=== PATIENT | male | born 1995 | race Two or more races ===

== ENCOUNTER 2019-09-30 10:40 | Emergency (ER) | payer SELFPAY ==
[~2019-09-30] VITALS: Ht 172.7 cm; Wt 170.1 kg
[2019-09-30] VITALS (36 sets, daily range): BP systolic 110–143; BP diastolic 48–103
--- NOTE | 2019-09-30 10:45 | NUR ---
ED Nurse Note: Pt was brought in ambulance from home d/t behavioral complaint. Per EMS pt smoked meth yesterday and hear voices. Pt wants to hang himself. Placed on bed and gown; hooked to oil dispatcher. VSS, on RA, afebrile on triage. Safety measures in placed. Will continue to monitor.
[2019-09-30 11:05] LABS: APPEARANCE,URINE CLEAR; BILIRUBIN, URINE NEGATIVE (NEGATIVE); COLOR,URINE PALE YELLOW; EOSINOPHILS % (AUTO) 0.7 % (0.0-3.0); GLUCOSE, URINE (UA) NEGATIVE (NEGATIVE); HEMATOCRIT 43.8 % (42.0-52.0); HEMOGLOBIN 16.2 G/DL (14.2-18.0); KETONES,URINE NEGATIVE (NEGATIVE); LEUKOCYTE ESTERASE ,URINE NEGATIVE (NEGATIVE); LYMPHOCYTES % (AUTO) 21.4 % (20.0-45.0); MEAN CORPUSCULAR VOLUME 91 FL (80-99); MONOCYTES % (AUTO) 6.7 % (1.0-10.0); NEUTROPHILS % (AUTO) 70.3 % (45.0-75.0); NITRITE,URINE NEGATIVE (NEGATIVE); PH,URINE 7 (4.5-8.0); PLATELET COUNT 225 K/UL (150-450); PROTEIN,URINE NEGATIVE (NEGATIVE); RED BLOOD COUNT 4.81 M/UL (4.70-6.10); RED CELL DISTRIBUTION WIDTH 11.7 % (11.6-14.8); UROBILINOGEN,URINE NORMAL MG/DL (0.0-1.0); WHITE BLOOD COUNT 8.3 K/UL (4.8-10.8)
--- NOTE | 2019-09-30 11:21 | NUR ---
ED Nurse Note: Noted pt with mild anxiety; pt stated, "I need to get out of here, I need to call my mom."
--- NOTE | 2019-09-30 11:30 | NUR ---
ED Nurse Note: Dr. Barraza at bedside.
[2019-09-30 11:33] LABS: ANION GAP 11 mmol/L (5-15); BLOOD UREA NITROGEN 9 mg/dL (7-18); CALCIUM 9.4 MG/DL (8.5-10.1); CARBON DIOXIDE 24 MMOL/L (21-32); CHLORIDE 106 MMOL/L (98-107); CREATININE 0.9 MG/DL (0.55-1.30); POTASSIUM 3.9 MMOL/L (3.5-5.1); SODIUM 141 MMOL/L (136-145)
--- NOTE | 2019-09-30 11:35 | Emergency Room Report ---
History of Present Illness General Chief Complaint: Behavioral Complaint Source: Patient, EMS (Francisco Barraza MD) Present Illness HPI Patient is a 24-year-old male brought in by EMS with [employer] after increased agitation at home. Patient reportedly had been in a psychiatric facility in the past. Patient was placed on a 5150 hold by [employer]. Reportedly had threatened to harm himself. Reportedly had been using methamphetamine. Patient denies any suicidal thoughts or thoughts of self-harm and states he was only eating cake. (Francisco Barraza MD) Allergies: Coded Allergies: No Known Allergies (Unverified , 09/30/19) COVID-19 Screening Contact w/high risk pt: No Recent Travel to affected area: No Experienced COVID-19 symptoms?: No (Francisco Barraza MD) Patient History Past Medical History: see triage record Reviewed Nursing Documentation: PMH: Agreed; PSxH: Agreed (Francisco Barraza MD) Nursing Documentation-PMH Past Medical History: No Stated History (Francisco Barraza MD) Review of Systems All Other Systems: negative except mentioned in HPI (Francisco Barraza MD) Physical Exam Vital Signs Date Time Temp Pulse Resp B/P (MAP) Pulse Ox O2 Delivery O2 Flow Rate FiO2 09/30/19 10:35 99.1 103 18 124/84 (97) 98 Room Air Sp02 EP Interpretation: reviewed, normal General Appearance: normal inspection, alert, obese Head: atraumatic ENT: normal ENT inspection, hearing grossly normal, normal voice Neck: normal inspection, full range of motion, supple, no bony tend Respiratory: normal inspection, lungs clear, normal breath sounds, no respiratory distress, no retraction, no wheezing Cardiovascular #1: regular rate, rhythm, no edema Gastrointestinal: normal inspection, normal bowel sounds, non tender, soft, no guarding, no hernia Genitourinary: no CVA tenderness Musculoskeletal: normal inspection, back normal, normal range of motion Neurologic: alert, motor strength/tone normal, enrollment management manager III-XII nml as tested, sensory intact, responsive, speech normal, normal inspection Psychiatric: mood/affect normal, anxious (Francisco Barraza MD) Medical Decision Making Diagnostic Impression: Primary Impression: Behavioral disorder Additional Impression: Psychosis ER Course Patient presented for agitation. Differential diagnoses include substance abuse , psychosis, bipolar disorder, depression, malingering . because of complexity of patient's case laboratory tests and imaging studies were ordered Patient was noted to have increased agitation and was given Benadryl held Ativan and Haldol. He was placed in restraints. Patient was noted to be 5150 hold placed by [employer]. Patient was medically cleared for psychiatric evaluation as needed. Currently denies suicidal thoughts. Labs Test 09/30/19 10:45 White Blood Count 8.3 K/UL (4.8-10.8) Red Blood Count 4.81 M/UL (4.70-6.10) Hemoglobin 16.2 G/DL (14.2-18.0) Hematocrit 43.8 % (42.0-52.0) Mean Corpuscular Volume 91 FL (80-99) Mean Corpuscular Hemoglobin 33.6 PG (27.0-31.0) Mean Corpuscular Hemoglobin Concent 36.9 G/DL (32.0-36.0) Red Cell Distribution Width 11.7 % (11.6-14.8) Platelet Count 225 K/UL (150-450) Mean Platelet Volume 7.6 FL (6.5-10.1) Neutrophils (%) (Auto) 70.3 % (45.0-75.0) Lymphocytes (%) (Auto) 21.4 % (20.0-45.0) Monocytes (%) (Auto) 6.7 % (1.0-10.0) Eosinophils (%) (Auto) 0.7 % (0.0-3.0) Basophils (%) (Auto) 1.0 % (0.0-2.0) Urine Color Pale yellow Urine Appearance Clear Urine pH 7 (4.5-8.0) Urine Specific [place] 1.005 (1.005-1.035) Urine Protein Negative (NEGATIVE) Urine Glucose (UA) Negative (NEGATIVE) Urine Ketones Negative (NEGATIVE) Urine Blood Negative (NEGATIVE) Urine Nitrite Negative (NEGATIVE) Urine Bilirubin Negative (NEGATIVE) Urine Urobilinogen Normal MG/DL (0.0-1.0) Urine Leukocyte Esterase Negative (NEGATIVE) Sodium Level 141 MMOL/L (136-145) Potassium Level 3.9 MMOL/L (3.5-5.1) Chloride Level 106 MMOL/L (98-107) Carbon Dioxide Level 24 MMOL/L (21-32) Anion Gap 11 mmol/L (5-15) Blood Urea Nitrogen 9 mg/dL (7-18) Creatinine 0.9 MG/DL (0.55-1.30) Estimat Glomerular Filtration Rate > 60 mL/min (>60) Glucose Level 104 MG/DL (74-106) Calcium Level 9.4 MG/DL (8.5-10.1) Total Bilirubin 0.4 MG/DL (0.2-1.0) Aspartate Amino Transf (AST/SGOT) 42 U/L (15-37) Alanine Aminotransferase (ALT/SGPT) 99 U/L (12-78) Alkaline Phosphatase 66 U/L (46-116) Total Protein 8.0 G/DL (6.4-8.2) Albumin 4.1 G/DL (3.4-5.0) Globulin 3.9 g/dL Albumin/Globulin Ratio 1.1 (1.0-2.7) Salicylates Level 0.5 ug/mL (2.8-20) Urine Opiates Screen Negative (NEGATIVE) Acetaminophen Level < 2 MCG/ML (10-30) Urine Barbiturates Screen Negative (NEGATIVE) Phencyclidine (PCP) Screen Negative (NEGATIVE) Urine Amphetamines Screen Negative (NEGATIVE) Urine Benzodiazepines Screen Negative (NEGATIVE) Urine Cocaine Screen Negative (NEGATIVE) Urine Marijuana (THC) Screen Positive (NEGATIVE) Serum Alcohol < 3 mg/dL (Francisco Barraza MD) ER Course I reevaluated patient in the morning. On 5150 hold. Patient not endorsing SI or HI. I do not believe patient requires emergent psychiatric placement. We will call Dr. Kinsey to clear patient. (Russell Bryson MD) ER Course Patient signed out to me from previous provider pending psychiatric evaluation. Briefly, the patient is on a 5150 hold for suicidal thoughts. He has been in the emergency department for nearly 30 hours. Denies SI/HI at this time. Dr. Kinsey has evaluated the patient and lifted the 5150 hold. Patient will be discharged to follow-up with his mental health team. No complaints or health concerns from the patient at this time. (Jake Joe MD) Last Vital Signs Date Time Temp Pulse Resp B/P (MAP) Pulse Ox O2 Delivery O2 Flow Rate FiO2 09/30/19 11:00 99.1 18 124/84 98 Room Air 09/30/19 11:00 103 (Francisco Barraza MD) Disposition: HOME, SELF-CARE Condition: Stable Referrals: NOT CHOSEN IPA/,REFERRING (PCP) Francisco Barraza MD September 30, 2019 11:35 Russell Bryson MD October 01, 2019 14:13 Jake Joe MD October 01, 2019 16:06
[2019-09-30 11:38] LABS: ALANINE AMINOTRANSFERASE 99 U/L (12-78); ALBUMIN 4.1 G/DL (3.4-5.0); ALBUMIN/GLOBULIN RATIO 1.1 (1.0-2.7); ALKALINE PHOSPHATASE 66 U/L (46-116); ASPARTATE AMINO TRANSFERASE 42 U/L (15-37); BILIRUBIN,TOTAL 0.4 MG/DL (0.2-1.0)
--- NOTE | 2019-09-30 11:48 | NUR ---
ED Nurse Note: Pt was found not on his bed, stated "I want to leave!", called security; notified ERMD and charge nurse; pt uncompliant to care, consistently yelling. Placed back to bed; safety measures in placed. Skin intact; no redness nor swelling on bilateral wrist. Dim lights on pt's room. VSS, on RA, NAD. Will contine to monitor.
[2019-09-30] MEDS ORDERED: Haloperidol 5mg/ml Inj IM ONE (12:00)
[2019-09-30] MEDS ORDERED: LORazepam Inj 2mg/ml 1ml IM ONE (12:00)
[2019-09-30] MEDS ORDERED: DiphenhydrAMINE 50mg/ml Inj IM ONE (12:00)
--- NOTE | 2019-09-30 13:00 | NUR ---
ED Nurse Note: Pt came in with guerrero shirt and shorts but shirt was teared up; clothes remained with pt right now. Black shoes placed on psych locker #3.
--- NOTE | 2019-09-30 14:51 | NUR ---
ED Nurse Note: Pt on bed, asleep. VSS, on RA, NAD noted.
--- NOTE | 2019-09-30 18:30 | NUR ---
ED Nurse Note: assisted pt on eating snacks and drink.
--- NOTE | 2019-09-30 19:00 | NUR ---
ED Nurse Note: sitter at bedside. safety precautions in place. will continue to monitor.
--- NOTE | 2019-09-30 19:05 | NUR ---
ED Nurse Note: Pt assessed and informed of possible restraint removal parameters. Pt agreed. pt able to fully verbalize needs and thought process. Pt pleasant and polite. Pt resting in bed comfortably, compliant with following commands and guidelines. Sitter placed at bedside, restraints removed. will continue to monitor.
--- NOTE | 2019-09-30 19:13 | NUR ---
ED Nurse Note: hand-off given to gillian baugh for continuity of care.
--- NOTE | 2019-09-30 19:15 | NUR ---
ED Nurse Note: Pt resting in bed, VSS no ss of distress noted.
--- NOTE | 2019-09-30 21:30 | NUR ---
ED Nurse Note: Pt informed of ERMD desire to initiate additional 1L of NS and need for new iv access establishment. Pt refused. PT medically cleared. ERMD notified of refusal and clearance.
--- NOTE | 2019-09-30 23:32 | NUR ---
ED Nurse Note: Pt resting in bed. Pt offered food and drinks, pt refused. pt offered assistance to restroom, pt refused. ERMD aware. pt aao x 4, calm and cooperative. will continue to monitor.
[2019-10-01] VITALS (7 sets, daily range): BP systolic 128–134; BP diastolic 53–76
--- NOTE | 2019-10-01 01:15 | NUR ---
ED Nurse Note: Pt offered food and drinks, pt accepted. Pt given sandwich, juice, and water. Pt denied need for restroom. Pt stated he just wants to sleep. Pt resting comfortably in bed. VSS no ss of distress noted.
--- NOTE | 2019-10-01 03:20 | NUR ---
ED Nurse Note: Pt sleeping in bed, vss no ss of distress noted. safety precautions in place, sitter at bedside.
--- NOTE | 2019-10-01 05:22 | NUR ---
ED Nurse Note: Pt sleeping in bed, vss no ss of distress noted. safety precautions in place, sitter at bedside.
--- NOTE | 2019-10-01 05:24 | NUR ---
ED Nurse Note: pt informed of need to place new IV for maintainance IV fluids. Pt refused. ERMD aware.
--- NOTE | 2019-10-01 07:10 | NUR ---
ED Nurse Note: RECEIVED REPORT FROM JONNA PRESSLEY, PT SITTING ON CHAIR WITH SITTER. PT IS WITH NO DISTRESS. CALM AT THIS TIME AND EATING HIS BREAKFAST.
--- NOTE | 2019-10-01 07:42 | NUR ---
ED Nurse Note: PT. FINISHED HIS BREAKFAST TRAY 100%. PT. REQUESTED A 2ND BREAKFAST TRAY. VSS.
--- NOTE | 2019-10-01 07:50 | NUR ---
ED Nurse Note: Second breakfast tray provided to pt. Primary RN as sitter.
--- NOTE | 2019-10-01 08:21 | NUR ---
ED Nurse Note: Pt yelling and screaming and states that he is doing that because he is bored. Dr Bryson at the bed side and explained to pt that we still are waiting for a placement bed. Pt verbalized understanding.
--- NOTE | 2019-10-01 13:30 | NUR ---
ED Nurse Note: pt. kept on going to the nursing station asking for his shoes. Dr. nicholas explained to him that he is not allowed to have his belongings until he was cleared out by Psych doctor. Attempted to ask pt. to return to his room but pt. escaped through the ambulance entrance. case technician attempted to stop him. called senior security architect but pt. was nowehere to be found. Called 911. Spoke with rotary drill operator [phone] and was told that police will be sent to the hospital for investigation
--- NOTE | 2019-10-01 15:20 | NUR ---
ED Nurse Note: pt. returned by officer jessica. pt. was placed in a room. phuong romero at the bedside.
--- NOTE | 2019-10-01 16:10 | NUR ---
ED Nurse Note:dr. Kinsey came to evaluate pt. ,and she had cleared him for d/c home, pt. was given food and his clothes from [facility]
--- NOTE | 2019-10-01 16:20 | NUR ---
ED Nurse Note: pt.'s hold was lifted by Dr. Kinsey. d/c sitetr order
--- NOTE | 2019-10-01 16:25 | NUR ---
ER DISCHARGE NOTE: Patient is cleared to be discharged per ERMD, pt is aox4, on room air, with stable vital signs. pt was given dc instructions, pt was able to verbalize understanding, pt is able to ambulate with steady gait. pt took all belongings.
== END 2019-10-01 16:30 | disposition home or self-care (01) ==
LOC: EDBD 10:40 → EMR 11:09
DX: F91.9 Conduct disorder, unspecified (principal); F23 Brief psychotic disorder; R45.851 Suicidal ideations
CPT/HCPCS: 36415; 80053; 80307; 81003; 85025; 96372; 99285; G0480; J1200; J1630

== ENCOUNTER 2019-11-07 21:20 | Emergency (ER) | payer SELFPAY ==
[~2019-11-07] VITALS: Ht 172.7 cm; Wt 136.1 kg
--- NOTE | 2019-11-07 21:28 | Emergency Room Report ---
History of Present Illness General Chief Complaint: Behavioral Complaint Source: Patient, EMS (Francisco Barraza MD) Source: Patient, EMS, [employer] (Juancarlos Phillips MD) Present Illness HPI Patient is a 24-year-old male who presented for increased agitation. Patient had been previously on a 5150 hold. Patient had been brought in after mom called. Had previous psychiatric hospitalizations due to mental illness. Previous ER visit for 5150 hold in the past. Reportedly had use of substances in the past. (Francisco Barraza MD) HPI This is a 24-year-old male with psychiatric history. He presents with chief complaint of agitation and danger to self and others. His mom called 911 because he was acting erratically. Supposedly there was methamphetamine use. She said that she felt danger to herself and called 911. [address] him on a 5150. Patient said that she did not give him his Abilify. He denies suicidal thoughts homicidal thought. He denies any drug use or alcohol use. (Juancarlos Phillips MD) Allergies: Coded Allergies: No Known Allergies (Unverified , 09/30/19) COVID-19 Screening COVID-19 risk:Contact w/high r: No COVID-19 risk:Travel to affect: No Has patient experienced blair: No COVID-19 Testing performed LIFE CYCLE ASSESSMENT ANALYST: No (Francisco Barraza MD) COVID-19 risk:Contact w/high r: No COVID-19 risk:Travel to affect: No Has patient experienced blair: No (Juancarlos Phillips MD) Patient History Past Medical History: see triage record Reviewed Nursing Documentation: PMH: Agreed; PSxH: Agreed (Francisco Barraza MD) Past Medical History: see triage record, old chart reviewed Past Surgical History: none Family History: none Social History: tobacco use, drug use Immunizations: other Reviewed Nursing Documentation: PMH: Agreed; PSxH: Agreed (Juancarlos Phillips MD) Review of Systems ENT: Denies: sore throat Cardiovascular: Denies: chest pain, palpitations Gastrointestinal/Abdominal: Denies: nausea, vomiting, diarrhea Musculoskeletal: Denies: back problems Skin: Denies: rash Neurological: Denies: TROY, seizures All Other Systems: negative except mentioned in HPI (Juancarlos Phillips MD) Physical Exam Vital Signs Date Time Temp Pulse Resp B/P (MAP) Pulse Ox O2 Delivery O2 Flow Rate FiO2 11/07/19 21:17 98.2 122 18 113/49 (70) 98 Room Air Sp02 EP Interpretation: reviewed, normal General Appearance: alert/responsive, no apparent distress, GCS 15, non-toxic Head: atraumatic Eyes: PERRL, lids + conjunctiva normal ENT: hearing intact, no angioedema Neck: supple/symm/no masses, no meningismus Respiratory: effort normal, no wheezing, chest symmetrical Cardiovascular: regular rate, rhythm, no edema Cardiovascular #2: 2+ carotid (R), 2+ carotid (L), 2+ dorsalis pedis (R), 2+ dorsalis pedis (L) Gastrointestinal: non-tender, no mass, non-distended, no rebound/guarding, normal bowel sounds Musculoskeletal: gait & station normal, normal ROM, strength & tone normal, non -tender Neurologic: oriented x3, sensory intact, normal speech Psychiatric: other Skin: no rash, well hydrated Lymphatic: normal inspection (Francisco Barraza MD) Vitals unremarkable Sp02 EP Interpretation: reviewed, normal General Appearance: alert/responsive, no apparent distress, non-toxic Head: normocephalic, atraumatic Eyes: PERRL, EOMI ENT: oropharynx normal Neck: supple/symm/no masses Respiratory: effort normal, no rhonchi, no wheezing Cardiovascular: no murmur, gallop, rub Gastrointestinal: non-tender, no mass, non-distended, no rebound/guarding, normal bowel sounds Musculoskeletal: gait & station normal Neurologic: oriented x3, sensory intact, motor strength/tone normal Psychiatric: other - Flat affect Skin: no rash, normal palpation (Juancarlos Phillips MD) Medical Decision Making Diagnostic Impression: Primary Impression: Behavioral disorder Additional Impressions: Psychosis Qualified Codes: F23 - Brief psychotic disorder At risk for danger to others ER Course Patient was seen by me briefly and was endorsed to Dr. Phillips. (Francisco Barraza MD) ER Course Patient presents as a 5150 for danger to self and other. He is calm here. I did give him a dose of Zyprexa here. Laboratory data is unremarkable. Alcohol and drug screen negative. Patient is medically cleared for psychiatric evaluation. (Juancarlos Phillips MD) ER Course Please see above note. Patient was agitated. He thought that staff were laughing at him. He is he was reassured and calmed. He states he takes Latuda and Abilify. He had already received Zyprexa 5mg. He is given half dose of his usual Abilify and also 1 mg of Ativan. Patient more calm. Attempting to place. Tested for COVID-19 which is negative. Patient agitated and not calming. Sedated with Haldol, Benadryl and Ativan. Await placement. Signed out to Dr. Joe. (Nathaniel Pan MD) Last Vital Signs Date Time Temp Pulse Resp B/P (MAP) Pulse Ox O2 Delivery O2 Flow Rate FiO2 11/07/19 21:17 98.2 122 18 113/49 (70) 98 Room Air (Francisco Barraza MD) Status: unchanged (Juancarlos Phillips MD) Last Vital Signs Date Time Temp Pulse Resp B/P (MAP) Pulse Ox O2 Delivery O2 Flow Rate FiO2 11/08/19 14:23 98.7 62 17 120/61 99 Room Air Status: improved (Nathaniel Pan MD) Disposition: PSYCH HOSP/UNIT Condition: Stable Francisco Barraza MD Nov 07, 2019 21:28 Juancarlos Phillips MD Nov 07, 2019 23:46 Nathaniel Pan MD Nov 08, 2019 06:46
[2019-11-07 22:00] VITALS: BP 113/49
--- NOTE | 2019-11-07 22:00 | NUR ---
ED Nurse Note: Pt brought into ED by BERTHA from home for behavioral complaint. Pt placed on 5150 psych hold by [employer] for danger to self and others. Per [employer], pt stated he was hearing voices and the mother had disclosed to PD that she was scared for her own safety and the pts. Pt denies wanting to harm others or himself upon ED assessment by RN. Pt also denies drug or alcohol use tonight. Pt is aaox4, breathing is normal and unlabored. No cough, SOB or fever noted. Pt placed in room with suicide and safety precuations in place and put into gown. Pt displays attention seeking behaviors such as using a loud voice, but is otherwise cooperative. Blood drawn and sent to lab. RN bedside as sitter. Will continue to closely monitor.
--- NOTE | 2019-11-07 22:10 | NUR ---
ED Nurse Note: Pt belongings locked in locker 3.
[2019-11-07 22:39] LABS: BASOPHILS % (AUTO) 0.9 % (0.0-2.0); EOSINOPHILS % (AUTO) 0.5 % (0.0-3.0); HEMATOCRIT 48.7 % (42.0-52.0); HEMOGLOBIN 15.5 G/DL (14.2-18.0); LYMPHOCYTES % (AUTO) 24.3 % (20.0-45.0); MEAN CORPUSCULAR VOLUME 104 FL (80-99); MONOCYTES % (AUTO) 5.2 % (1.0-10.0); NEUTROPHILS % (AUTO) 69.1 % (45.0-75.0); PLATELET COUNT 261 K/UL (150-450); RED CELL DISTRIBUTION WIDTH 13.9 % (11.6-14.8); WHITE BLOOD COUNT 9.1 K/UL (4.8-10.8)
[2019-11-07 22:46] LABS: APPEARANCE,URINE CLEAR; BILIRUBIN, URINE NEGATIVE (NEGATIVE); GLUCOSE, URINE (UA) NEGATIVE (NEGATIVE); KETONES,URINE 1+ (NEGATIVE); LEUKOCYTE ESTERASE ,URINE 1+ (NEGATIVE); NITRITE,URINE NEGATIVE (NEGATIVE); PH,URINE 6 (4.5-8.0); PROTEIN,URINE 2+ (NEGATIVE); UROBILINOGEN,URINE NORMAL MG/DL (0.0-1.0)
[2019-11-07 22:51] LABS: ANION GAP 10 mmol/L (5-15); BLOOD UREA NITROGEN 17 mg/dL (7-18); CALCIUM 9.1 MG/DL (8.5-10.1); CARBON DIOXIDE 27 MMOL/L (21-32); CHLORIDE 106 MMOL/L (98-107); POTASSIUM 5.4 MMOL/L (3.5-5.1); SODIUM 142 MMOL/L (136-145)
[2019-11-07 22:57] LABS: ALANINE AMINOTRANSFERASE 96 U/L (12-78); ALBUMIN 3.9 G/DL (3.4-5.0); ALBUMIN/GLOBULIN RATIO 0.9 (1.0-2.7); ALKALINE PHOSPHATASE 59 U/L (46-116); ASPARTATE AMINO TRANSFERASE 56 U/L (15-37); BILIRUBIN,TOTAL 0.8 MG/DL (0.2-1.0)
[2019-11-07 23:07] LABS: COLOR,URINE YELLOW
--- NOTE | 2019-11-08 00:15 | NUR ---
ED Nurse Note: Sitter is bedside. Pt is awake and resting in bed. Pt has no complaints.
--- NOTE | 2019-11-08 01:00 | NUR ---
ED Nurse Note: Pt is being cooperative. Pt provided with oral hydration.
[2019-11-08 02:00] VITALS: BP 115/65
--- NOTE | 2019-11-08 03:00 | NUR ---
ED Nurse Note: Pt is sleeping at this time. NAD. Sitter is bedside with safety measures in place.
[2019-11-08 05:00] VITALS: BP 117/70
--- NOTE | 2019-11-08 05:00 | NUR ---
ED Nurse Note: Pt is sleeping. Sitter remains bedside with safety measures in place.
--- NOTE | 2019-11-08 05:25 | NUR ---
HAND-OFF: Report given to Timothy Friedman RN.
--- NOTE | 2019-11-08 05:35 | NUR ---
ED Nurse Note: received report from Caitlin PRESSLEY. Will resume care of patient. vss, nad, calm and sleeping. sitter at bedside.
[2019-11-08 05:37] VITALS: BP 127/66
[2019-11-08] MEDS ORDERED: LATUDA20 MG PO (06:31)
[2019-11-08] MEDS ORDERED: ABILIFY10 MG ORAL (06:31)
[2019-11-08] MEDS ORDERED: LORazepam 1mg tab ORAL ONE (06:45)
--- NOTE | 2019-11-08 07:40 | NUR ---
ED Nurse Note: no acute distress. Sitter at bedside. Safety precautions in place. Pt is talking very loudly ans states he hears voices.
--- NOTE | 2019-11-08 08:50 | NUR ---
ED Nurse Note: COVID swab sent.
[2019-11-08 09:55] VITALS: BP 122/63
--- NOTE | 2019-11-08 10:11 | NUR ---
ED Nurse Note: Pt eating a sandwhich in bed. Sitter at bedside. Pt calm and cooperative.
--- NOTE | 2019-11-08 12:19 | NUR ---
ED Nurse Note: Pt calm, sitting in bed, denies SI or HI. Sitter at bedside.
--- NOTE | 2019-11-08 13:40 | NUR ---
ED Nurse Note: Pt yelling "F*&K YOU" into the hallway and jumped out of bed 1x. ERMD notified.
[2019-11-08] MEDS ORDERED: LORazepam Inj 2mg/ml 1ml IM ONE (13:45)
[2019-11-08] MEDS ORDERED: Haloperidol 5mg/ml Inj IM ONE (13:45)
[2019-11-08] MEDS ORDERED: DiphenhydrAMINE 50mg/ml Inj IM ONE (13:45)
[2019-11-08 14:23] VITALS: BP 120/61
--- NOTE | 2019-11-08 15:24 | NUR ---
ED Nurse Note: Pt calm and lying in bed. Denying auditory disturbances. Sitter at bedside.
--- NOTE | 2019-11-08 17:38 | NUR ---
ED Nurse Note: Report given to Francisco PRESSLEY at OB for transfer.
[2019-11-08 18:04] VITALS: BP 127/67
--- NOTE | 2019-11-08 19:00 | NUR ---
HAND-OFF: Report given to Almaz PRESSLEY.
--- NOTE | 2019-11-08 20:00 | NUR ---
ED Nurse Note: Patient resting comfortably, sitter at bedside. Will continue to monitor.
--- NOTE | 2019-11-08 21:00 | NUR ---
ED Nurse Note: Patient still sleeping, no s/s of acute distress or disturbance. Will continue to monitor as sitter is at bedside.
--- NOTE | 2019-11-08 22:01 | NUR ---
ED Nurse Note: Patient still sleeping, will continue to monitor. Sitter at bedside.
--- NOTE | 2019-11-08 23:00 | NUR ---
ED Nurse Note: Both side rails lifted as patient was shifting in bed. Patient awake and alert, requested water. Water provided. Will continue to monitor, sitter still at bedside post 15 minute break.
--- NOTE | 2019-11-09 01:11 | NUR ---
ED Nurse Note: Patient still sleeping, no s/s of acute distress. will continue to monitor, siter is at bedside.
--- NOTE | 2019-11-09 02:32 | NUR ---
ED Nurse Note: Patient voided at bedside into urinal. Sitter still at bedside. void documented. Patient also request water, request accomodated. Will continue to monitor.
--- NOTE | 2019-11-09 03:00 | NUR ---
ED Nurse Note: Patient is beginnging to cause verbal disturbances. Due to track record of behavior, security contacted to provide a visible show of force to discourage future outbursts. Patient complied with direction to climb back in to bed and try to go back to sleep. Sitter still at bedside. Will continue to monitor throughout the night.
--- NOTE | 2019-11-09 03:38 | NUR ---
ED Nurse Note: Patient requested third cup of water, request accomodated. will continue to monitor. Sitter at bedside.
[2019-11-09 05:00] VITALS: BP 136/78
--- NOTE | 2019-11-09 05:04 | NUR ---
ED Nurse Note: RECEIVED REPORT FROM CHAD PRESSLEY. PT IS CALM AND RESTING. VSS, NAD. SITTER AT BEDSIDE
--- NOTE | 2019-11-09 07:07 | NUR ---
ED Nurse Note: GAVE REPORT TO SABINO MATUTE RN.
--- NOTE | 2019-11-09 07:15 | NUR ---
ED Nurse Note: received report from Timothy Friedman RN for continuity of care. Pt on bed, awake and alert, sitting, VSS, on RA, NAD noted. Sitter at bedside at all times.
[2019-11-09 07:45] VITALS: BP 134/74
--- NOTE | 2019-11-09 09:10 | NUR ---
ED Nurse Note: breakfast tray offered to pt.
--- NOTE | 2019-11-09 09:18 | NUR ---
SPOKE TO JASON @[phone]. WILL CALL BACK SOON BED AVILABLE
[2019-11-09 11:15] VITALS: BP 132/72
--- NOTE | 2019-11-09 12:00 | NUR ---
ED Nurse Note: lunch tray offered to pt.
--- NOTE | 2019-11-09 14:00 | NUR ---
CALLED [facility] STILL HAS NO BEDS AVILABLE
--- NOTE | 2019-11-09 15:00 | NUR ---
CLINICALS FAXED TO [facility] FOR EVAL
--- NOTE | 2019-11-09 16:40 | NUR ---
still waiting for the review from marks
[2019-11-09 16:43] VITALS: BP 128/71
--- NOTE | 2019-11-09 17:10 | NUR ---
ED Nurse Note: received order for non-formulary med; Latuda 20mg 1 TAB given to pt. Med taken from pt's med inventory. ERMD and Charge nurse aware.
--- NOTE | 2019-11-09 17:55 | NUR ---
ED Nurse Note: report given to HUAN Rosas at [facility] for transfer of care.
--- NOTE | 2019-11-09 20:00 | NUR ---
[facility] just showed up to transport patient.
[2019-11-09 20:07] VITALS: BP 128/71
--- NOTE | 2019-11-09 20:09 | NUR ---
ED Nurse Note: Patient was transfered to [facility] via private [facility] ambulance # [id number], with all belongings. Patient AAO x4, VSS at this time, no acute disstress noted.
== END 2019-11-09 20:11 ==
LOC: EDBD 21:20 → EMR 21:55
DX: F91.9 Conduct disorder, unspecified (principal); F23 Brief psychotic disorder; Z72.0 Tobacco use; F19.90 Other psychoactive substance use, unspecified, uncomplicated
CPT/HCPCS: 36415; 80053; 80307; 81003; 85025; 99285; G0480; J1200; J1630; U0002